=== PATIENT | female | born 1935 | race Native Hawaiian/Other Pacific Islander ===

== ENCOUNTER 2021-03-03 21:51 | Inpatient (IN) | payer OTHER ==
[~2021-03-03] VITALS: Ht 157.5 cm; Wt 66.8 kg
[2021-03-03 21:51] VITALS: BP 87/41; TEMP 99.1
[2021-03-03 21:58] VITALS: BP 79/42
[2021-03-03 22:00] VITALS: BP 82/42
[2021-03-03 22:12] LABS: PLATELET COUNT 301 K/uL (152-353)
[2021-03-03 22:15] VITALS: BP 96/54
[2021-03-03 22:22] LABS: POTASSIUM 3.1 mmol/L (3.6-5.2); SODIUM 139 mmol/L (136-145)
[2021-03-03 22:30] VITALS: BP 107/50
[2021-03-03 22:45] VITALS: BP 115/53
[2021-03-03 22:48] LABS: PARTIAL THROMBOPLASTIN TIME 25.6 SECONDS (24.5-33.6)
[2021-03-04] MEDS ORDERED: BUSP5TAB2 PO (10:51)
[2021-03-04] MEDS ORDERED: MULTIVITAMI1 PO (10:51)
[2021-03-04] MEDS ORDERED: ZOCOR80 MG PO (10:52)
[2021-03-04] MEDS ORDERED: AMLODIPINE BESYLATE PO (10:52)
[2021-03-04] MEDS ORDERED: QUET50TA16 PO (10:53)
[2021-03-04] MEDS ORDERED: MEGE40TA32 PO (10:54)
[2021-03-04] MEDS ORDERED: ALLO300T23 PO (10:54)
[2021-03-04] MEDS ORDERED: MELATONIN10 M1 PO (10:56)
[2021-03-04] MEDS ORDERED: ASA LOW DOSE81 MG PO (10:59)
[2021-03-04] MEDS ORDERED: MIRTAZAPINE7.5 MG PO (11:00)
[2021-03-04] MEDS ORDERED: GALANTAMINE PO (11:01)
[2021-03-04] MEDS ORDERED: METO-837 PO (11:02)
[2021-03-04] MEDS ORDERED: PRESERVISION PO (11:25)
--- NOTE | 2021-03-04 11:26 | NUR ---
03/04/21 0915 PT TO ROOM 1109 VIA STRETCHER PT BROUGHT IN FROM [facility] RECEIVED 2 STENTS.PT OREINTED TO ROOM.CALL LIGHT WITHIN REACH.PT HAS A HX DEMENTIA CONFUSED AT TIMES.CALL LIGHT WITHIN REACH.CC 03/04/21 1120 SPOOKE WITH NANCY RACIEL WILL BE COMING TO STAY WITHHER PT WILL CONTINOUSLY TRY TO GET OUT OF BED.STATED SHE WILL BE COMING TO STAY WITH HER IN ABOUT 30 MINTUES.LET HER KNOW THAT HAS APPROVED FOR HER TO STAY.CC
[2021-03-04 11:46] VITALS: BP 138/69; TEMP 99; Ht 157.5 cm; Wt 66.8 kg
--- NOTE | 2021-03-04 13:12 | NUR ---
03/04/21 1310 [facility] PRESENT IN ROOM.CALL GUERO CHRISTIAN.PT AWAKE EATING LUNCH NAD NOTED.DSY TO LT DRAKE D/I.CC
--- NOTE | 2021-03-04 13:16 | NUR ---
03/04/21 1315 PT REQUESTING SOMETHING FOR PAIN STATES IT HURTS WHEN SHE TAKES A BIG BREATH EXPLAINED TO PT IT COULD BE FROM PROCEDURE SHE HAD STENT PLACEMENT BUT THAT I WILL CHECK WITH THE DOCTOR.CC 03/04/21 131 NOTIFIED OF PT C/O PAIN STATED HE WILL ORDER SOMETHING FOR HER.CC
[2021-03-04 13:43] LABS: PLATELET COUNT 191 K/uL (152-353)
[2021-03-04 13:56] LABS: POTASSIUM 3.6 mmol/L (3.6-5.2)
[2021-03-04 16:00] VITALS: BP 102/56; TEMP 99.1
[2021-03-04 16:52] LABS: PLATELET COUNT 199 K/uL (152-353)
[2021-03-04 17:09] LABS: PARTIAL THROMBOPLASTIN TIME 28.3 SECONDS (24.5-33.6)
--- NOTE | 2021-03-04 18:27 | NUR ---
03/04/21 1555 WENT TO CHECK IN ON PT HEART ON TELE WAS 140-150 PT C/O STEADY CHEST PAIN.ASSISTED PT TO BATHROOM VOIDED 4OOML YELLOW URINE.ASSISTED BACK TO BED LEADS REPLACED ON PT.HEART RATE STILL HIGH 150'S.DR. REEDER NOTIFIED STAT EKG AND CARDIACS.B/P 105/58 139 95 PERCENT OXYGEN.CC
--- NOTE | 2021-03-04 18:54 | NUR ---
03/04/21 1625 MOVED TO ROOM 1129 FOR CLOSER OBSERVATION PER DR. REEDER. WILL START A CARDIZEM DRIP.CC 03/04/21 1645 22G TO RT FOREARM STARTED X 1 ATTEMPT PER DEEPALI SEPULVEDA.CC 03/04/21 CARDIZEM 10MG PUSG GIVEN TOLERATED WELL.B/P 102/62 144 99 PERCENT OXYGEN. 03/04/21 1714 CARDIZEM DRIP STARTED AT RATE 5/HR B/P 111/63 132 HEART RATE. 03/04/21 HEPARIN 7.65 STARTED AT AT 1740.B/P 105/60 145 93 PERCENT. 03/04/21 BEDPAN 3ML YELLOW URINE. 03/04/21 CARDIZEM DRIP STOPPED PER DR. REEDER ORDERS.
--- NOTE | 2021-03-04 19:48 | NUR ---
03/04/21 AMIODARONE 150MG/3ML BOLUS GIVEN AT 1852 114/66 HR 137 PERCENT 94 PERCENT GIVEN. 03/04/211910 AMIODARONE HCL 360/200 STARTED AT 33.3 /HR.B/P 117/64 88 93 PERCENT.PT TOLERATING WELL.HEART RATE 83 NSR.CC
[2021-03-04 20:11] VITALS: BP 117/64; TEMP 99.5
--- NOTE | 2021-03-04 21:41 | NUR ---
2000: PT RESTING IN BED. GRANDDAUGHTER PRESENT. PT CONFUSED AT TIMES. DRESSING TO LEFT GROIN INTACT S/P HEART CATH WITH STENT PLACEMENT 03/04/21. PT DENIES PAIN BUT STATES SHE'S VERY ANXIOUS AND WORRIED. PT HAS HEPARIN DRIP, AND AMIODARONE DRIP GOING SIMULTANIOUSLY. PT DENIES DISCOMFORT.
[2021-03-04 23:54] VITALS: BP 133/65; TEMP 98.9
--- NOTE | 2021-03-05 00:29 | NUR ---
03/05/21 0030: SECOND BAG OF NEXTERONE PRE-MIX INFUSION HUNG. RATE CHANGED TO 16.6 ML/HR FOR 18 HRS PER PROTOCOL. PT SLEEPING NO DISTRESS NOTED. FAMILY MEMBER IN ROOM.
--- NOTE | 2021-03-05 01:13 | NUR ---
03/04/21 2340: PTT 45.7, HEPARIN DRIP INCREASED BY 1ML/HR TO 8.6 PER HEPARIN DRIP PROTOCOL. NEXT PTT AT 0540. PT RESTING WELL. NO DISTRESS NOTED.
[2021-03-05 04:28] VITALS: BP 130/58; TEMP 99.8
[2021-03-05 08:00] VITALS: BP 121/37; TEMP 99
[2021-03-05 08:35] LABS: PLATELET COUNT 182 K/uL (152-353)
--- NOTE | 2021-03-05 08:46 | NUR ---
Screened for RD to Assess: Admitted with Chest Pain nad serv. invol. [facility] coronary artery and S/P stent x 2 LAD, and was in the hospital and tranferred to [facility] for a heart cath and returned back to [facility] and is an 85YOF and has a PMH of DMII, CHF, CVA, HTN, Diabetes and no diet order and receives megace, allopurinol, MVI and labs reveal elevated labs are WBC, RDW, APTT, BUN, Creat, Glucose 165, and total bilirubin and htose depressed are RBC, Hgb, Hct, ALT, TP and alb levels. Patient is 5'2" or 62 inches at 147.3 lbs. and IBW = 110+/-10% (99 to 121 lbs.) and kcal needs for IBW x 25 = 1200, x 30 = 1400, x 35 = 1600, and x 40 = 1800 kcal/day, protein needs x .8 to 1.5 = 36 to 68 grams per day and fluids d/t CHF at 1500 ml/cc per day or as MD decides and orders. BMI = 26.88 and is overweight and is 134% of IBW. RD Recommendations: 1- Monitor Labs 2-OT to work with the patient 3-PT to work wiht the patient 4-Make sure hydrated and d/t CHF may want to limit fluids to 1500 ml/cc per day, MD to decide 5-Add Vitamin C 500 mg BID 6-Add ZNSO4 wwo mg per day and d/c in 14 days 7-Advnace to a CLD x 24 hours 8-FLD x 48 hoours and then advance to 9-1500 calorie high fiber cardiac diet and fluids per MD 10-Add A supplement with meals when on FLD or higher suggest Glucerna 1.5 if not eating 75% of meals and d/c when eating 75% of meals RD available as needed-3=[phone]
[2021-03-05 08:50] LABS: POTASSIUM 3.1 mmol/L (3.6-5.2)
--- NOTE | 2021-03-05 10:28 | NUR ---
03/05/21 1015 [facility] PRESENT IN ROOM,PT AWAKE ALERT TALKING SMILING PT STATES SHE IS READY TO GO GO.VITAL SIGNS OBTAINED.CC
--- NOTE | 2021-03-05 11:31 | NUR ---
03/05/21 1130 PHYSICAL THERAPY PRESENT IN ROOM FOR EVALUATION PT TOLERATING WELL.CC
[2021-03-05 12:00] VITALS: BP 104/41; TEMP 98.6
[2021-03-05 16:00] VITALS: BP 145/75; TEMP 99.6
--- NOTE | 2021-03-05 17:26 | NUR ---
03/05/21 1725 AWAKEN EASILY PT TALKING SMILING NAD NOTED V/S OBTAINED NANCY GABRIEL PRESENT IN ROOM.NANCY EDUCATED EARILER ABOUT SHE CAME OUT WITH PT WATER PICTURE AND GOT SOME ICE.ALSO EXPLAINED TO HER WHEN SHE COMES IN HALLWAY SHE HAS TO WEAR A MASK.NANCY ALSO TOLD TO LIMIT GOING OUTSIDE TO SMOKE.TOLD NANCY TO CALL IF SHE NEEDS ANY ASSISTANCE WITH ANYTHING.NANCY HAS BEEN VERY HELPFUL ASSISTING TO HELP WITH GRANDMOTHER AND BATHE TODAY.CALL LIGHT WITHIN REACH.CC
--- NOTE | 2021-03-05 18:11 | NUR ---
03/05/211804 PT AMIODARONE DRIP COMPLETED DR. REEDER NOTIFED.PT GIVEN SOME MIRALAX PO PT STATES SHE HAS GERD FREQUENTLY AND CAUSES HER TO THRO UP.STATES SHE IS NOT NAUSEATED.ALSO MEDICATED FOR PAIN C/O PAIN TO LT UPPER ARM WARM TENDER WARM COMPRESS APPLIED EARILER AND REMOVED AT THIS TIME.CC
[2021-03-05 20:00] VITALS: BP 107/62; TEMP 98.8
--- NOTE | 2021-03-05 23:20 | NUR ---
PATIENTS TELEMETRY SHOWING HEARTRATE UP TO 135-150'S, CHECKED ON PATIENT AND VERIFIED TELEMETRY IN PLACE AND ACCURATE AND PATIENTS HEARTRATE IS IRREGULAR AND BETWEEN 130-150. CALLED DR. ORTIZ IN THE ER AND ORDERS GIVEN TO GIVE PATIENT CARDIZEM 10MG IVP X ONE TIME DOSE. PATIENT GIVEN THIS DOSE AT 2326. PATIENT TOLERATED WELL, DENIES ANY COMPLAINTS AND NO DISTRESS NOTED AT THIS TIME. PATIENTS GRAND DAUGHTER AT THE BEDSIDE. AT 2336 PATIENTS HEART RATE IS NOW 125-130 AND SHES RESTING QUIETLY IN NO DISTRESS AT THIS TIME. BP 124/55, PULSE 125, RESP 18 AND NON LABORED AND OXYGEN SATS AT 92% ON ROOM AIR. AT [address] ORTIZ PATIENTS HEARTRATE IS STILL IRREGULAR AND BETWEEN 130-150 PATIENT RESTING QUIETLY WITH HER EYES CLOSED. NO DISTRESS NOTED AT THIS TIME. DR. ORTIZ STATES TO "CONTINUE TO MONITOR PATIENT, HEART RATE SHOULD SLOW DOWN.". AT [address] ORTIZ IN THE ER PATIENT STILL HAVING ELEVATED HEART RATE IRREGULAR BETWEEN 140-150'S, PATIENT STILL RESTING AND DENIES ANY COMPLAINTS, ORDERS GIVEN TO GIVE PATIENT METOPROLOL 5MG IV NOW X ONE TIME DOSE. AT 0020 PATIENT GIVEN METOPROLOL 5MG SLOW IVP, PATIENT TOLERATED WELL, DENIES ANY COMPLAINTS AND STILL NO DISTRESS NOTED. PATIENTS BP 133/51 AT THIS TIME. AT 0055 PATIENTS HEART RATE STILL IRREGULAR AND RATE BETWEEN 110-115. PATIENT RESTING WITH HER EYES CLOSED AT THIS TIME. AT 0150 PATIENT CONTINUES TO REST WITH HER EYES CLOSED AND NO ACUTE DISTRESS NOTED OR COMPLAINTS VOICED AT THIS TIME. TELEMETRY STILL IRREGULAR AND HAS A RATE BETWEEN 110-120 WILL CONTINUE TO MONITOR PATIENT. AT 0258 PATIENTS HEART RATE BACK UP TO 130-150 AND IRREGULAR. PATIENT RESTING WITH EYES CLOSED AND NO ACUTE DISTRESS NOTED. CALLED DR. ORTIZ IN THE ER TO REPORT HEART RATE GOING BACK UP AND ORDERS WERE GIVEN TO GO AHEAD AND GIVE THE AMIODODARONE 400MG PO DOSE SCHEDULED FOR THIS AM. DOSE WAS GIVEN AT 0320 AND TOLERATED WELL. WILL CONTINUE TO MONITOR. AT 0355 PATIENTS HEART RATE IS NOW 75 AND PATIENT IS RESTING QUIETLY WITH HER EYES CLOSED AND IN NO ACUTE DISTRESS AT THIS TIME. WILL CONTINUE TO MONITOR.
[2021-03-06] VITALS: BP 124/55; TEMP 98.5
[2021-03-06 04:00] VITALS: BP 122/60; TEMP 98.6
[2021-03-06 05:21] LABS: PLATELET COUNT 208 K/uL (152-353)
[2021-03-06 08:00] VITALS: BP 134/68; TEMP 98.2
--- NOTE | 2021-03-06 08:03 | NUR ---
NOTIFIED DR. REEDER OF PT'S HR INCREASING THROUGH THE NIGHT, DR. REEDER ORDERS AMIODARONE 800MG PO FIRST DOSE 0900, NO FURTHER ORDERS GIVEN
[2021-03-06 12:00] VITALS: BP 118/53; TEMP 98.4
--- NOTE | 2021-03-06 13:55 | NUR ---
DR REEDER ORDERS TO DC HEPARIN DRIP AND GIVE ONE TIME DOSE OF ELIQUIS 2.5 MG PO NOW. NO FURTHER ORDERS GIVEN.
--- NOTE | 2021-03-06 15:03 | NUR ---
Patient has a follow up appointment with PCP Jeannine Florez on 03/12/21 @ [facility]. [phone]. Her follow up with Dr. Saucedo already scheduled from [facility].
--- NOTE | 2021-03-06 15:30 | NUR ---
PT DISCHARGE INSTRUCTIONS GIVEN TO PT AND GRANDDAUGHTER, BOTH VERBALIZED UNDERSTANDING, PT HAS FOLLOWUP APPT WITH DR. JENKINS ON 03/13/21 AT 1100, AND SHAHIDA KWOK ON 03/12/21 AT 1000, PRESCRIPTIONS GIVEN FOR ELIQUIS 2.5MG PO BID, AMIODORONE 400MG PO BID, PLAVIX 75MG PO DAILY, METOPROLOL TARTRATE 50MG PO BID, IV REMOVED WITH CATHETER INTACT, PT DC VIA WHEELCHAIR WITH GRANDAUGHTER TO PERSONAL VEHICLE, NAD NOTED
--- NOTE | 2021-03-07 12:40 | NUR ---
Followed up with patients grand daughter and she said that patient pulse had been running between 160 & 163. They called Dr. Saucedo and he instructed them to go to ER if it continued to run high.
== END 2021-03-06 15:30 | disposition home or self-care (01) | DRG 282 ==
LOC: ED 21:51 → MED/SURG 03-04 09:00
PROVIDERS: Emergency Medicine; ADMIT Internal Medicine Endocrinology, Diabetes & Metabolism; ATTEND Internal Medicine Endocrinology, Diabetes & Metabolism
DX: I21.29 ST elevation (STEMI) myocardial infarction involving other sites (principal); I48.91 Unspecified atrial fibrillation; E11.9 Type 2 diabetes mellitus without complications; I11.0 Hypertensive heart disease with heart failure; I50.9 Heart failure, unspecified; Z86.73 Personal history of transient ischemic attack (TIA), and cerebral infarction without residual deficits; I25.10 Atherosclerotic heart disease of native coronary artery without angina pectoris; E87.6 Hypokalemia; F41.8 Other specified anxiety disorders
CPT/HCPCS: 36415; 36591; 80048; 80053; 82550; 83880; 84484; 85027; 85379; 85610; 85730; 87635; 93005; 96360; 96361; 96365; 96366; 96375; 96376; 99285; J0282; J1644; J2270; J2405; J3490; U0003